=== PATIENT | female | born 1945 | race Caucasian/White ===

== ENCOUNTER → 2017-06-04 | Outpatient (CLI) | payer MEDICARE, BC | LOC: MC.RAD 10:20 | DX: Z12.31 Encounter for screening mammogram for malignant neoplasm of breast (principal); N63.20 Unspecified lump in the left breast, unspecified quadrant; R59.0 Localized enlarged lymph nodes ==

== ENCOUNTER → 2017-06-18 | Outpatient (CLI) | payer MEDICARE, BC, OTHER | LOC: MC.RAD 12:55 | DX: N60.02 Solitary cyst of left breast (principal) ==

== ENCOUNTER → 2018-06-07 | Outpatient (CLI) | payer MEDICARE, BC | LOC: MC.RAD 09:00 | DX: Z12.31 Encounter for screening mammogram for malignant neoplasm of breast (principal); N60.02 Solitary cyst of left breast ==

== ENCOUNTER → 2018-06-17 | Outpatient (CLI) | payer MEDICARE, BC | LOC: MC.RAD 08:50 | DX: N64.59 Other signs and symptoms in breast (principal) ==

== ENCOUNTER → 2019-01-17 | Outpatient (CLI) | payer MEDICARE, BC | LOC: MC.RAD 08:00 | DX: N64.59 Other signs and symptoms in breast (principal) | CPT/HCPCS: G0279 ==

== ENCOUNTER → 2019-04-27 | Outpatient (CLI) | payer MEDICARE, BC | LOC: COL.RAD 09:32 | DX: M47.816 Spondylosis without myelopathy or radiculopathy, lumbar region (principal); R22.2 Localized swelling, mass and lump, trunk | CPT/HCPCS: A9585 ==

== ENCOUNTER → 2021-10-17 | Outpatient (CLI) | payer MEDICARE, BC ==
[~2021-10-17] MED LIST: ASPIRIN 81M81 MG/TA2 PO; EMERGEN-C 1,01000 MG PO; VITAMIND3 5000 PO
== END ==
LOC: MC.RAD 10:54
DX: Z12.31 Encounter for screening mammogram for malignant neoplasm of breast (principal)

== ENCOUNTER → 2022-02-28 | Outpatient (CLI) | payer MEDICARE, BC | LOC: COL.RAD 08:28 | DX: C83.09 Small cell B-cell lymphoma, extranodal and solid organ sites (principal); I26.99 Other pulmonary embolism without acute cor pulmonale | CPT/HCPCS: Q9967 ==

== ENCOUNTER → 2023-03-30 | Outpatient (CLI) | payer MEDICARE, BC | LOC: COL.RAD 13:28 | DX: C83.09 Small cell B-cell lymphoma, extranodal and solid organ sites (principal) | CPT/HCPCS: Q9967 ==